=== PATIENT | male | born 1960 | race Caucasian/White ===

== ENCOUNTER 2016-06-22 20:27 | Inpatient (IN) | payer OTHER, SELFPAY ==
[~2016-06-22] VITALS: Ht 190.5 cm; Wt 50.6 kg
[2016-06-22] MEDS ORDERED: SODIUM CHLORIDE FLUSH 10ML SYR IVF ONE (21:00)
[2016-06-22] MEDS ORDERED: PIOG15TA9 PO (21:13)
[2016-06-22] MEDS ORDERED: LINA5TAB PO (21:13)
[2016-06-22] MEDS ORDERED: INSU100V12 INJ (21:13)
[2016-06-22] MEDS ORDERED: NAPR-874 PO (21:14)
[2016-06-22 21:29] LABS: HEMOGLOBIN 14.8 g/dL (13.7-18.0)
[2016-06-22] MEDS ORDERED: VANCOMYCIN PER PHARMACY IV ONE (21:30)
[2016-06-22] MEDS ORDERED: SODIUM CHLORIDE 0.9% 1,000ML IVBOLUS ONE (21:30)
[2016-06-22 21:38] LABS: ASPARTATE AMINO TRANSFERASE 16 U/L (15-37); BLOOD UREA NITROGEN 40 mg/dL (7-18)
[2016-06-22] MEDS ORDERED: VANCOMYCIN 2,000 MG in SODIUM CHLORIDE 0.9% 500 ML IV ONE (22:00)
[2016-06-22] MEDS ORDERED: AMPICILLIN/SULBACTAM 1,500 MG in SODIUM CHLORIDE 0.9% 50 ML IV SCH (22:00)
[2016-06-22 23:27] VITALS: BP 162/76
[2016-06-23] MEDS ORDERED: ACETAMINOPHEN 325 MG TABLET PO PRN
[2016-06-23] MEDS ORDERED: DOCUSATE 100 MG CAPSULE PO PRN
[2016-06-23] MEDS ORDERED: ONDANSETRON 2MG/ML, 2ML IVP PRN
[2016-06-23] MEDS ORDERED: POLYETHYLENE GLYCOL 17 GM PACKET PO PRN
[2016-06-23] MEDS ORDERED: BISACODYL 10 MG SUPP PR PRN
[2016-06-23] MEDS ORDERED: ZOLPIDEM 5MG TABLET PO PRN
[2016-06-23] MEDS ORDERED: HYDROcodone/APAP 5/325 TABLET PO PRN
[2016-06-23] MEDS: HEPARIN 5,000 UNITS/ML, 1ML SQ SCH ×3 (00:37→20:11)
[2016-06-23] MEDS: CEFTAROLINE 400 MG in SODIUM CHLORIDE 0.9% 100 ML IV SCH ×3 (00:38→23:50)
[2016-06-23 03:22] VITALS: BP 151/78
[2016-06-23 04:38] LABS: BLOOD UREA NITROGEN 34 mg/dL (7-18)
[2016-06-23 06:59] VITALS: BP 149/74
[2016-06-23] MEDS: INSULIN REGULAR 100 UNITS/ML, 3ML VIAL SQ-INSULIN SCH ×4 (08:20→21:00)
[2016-06-23] MEDS: INSULIN ASPART 70/30, VIAL SQ-INSULIN SCH ×3 (09:00→21:00)
[2016-06-23] MEDS: TEMPLATE NON-FORMULARY MED. (Linagliptin** (Tradjenta**) 5 MG) HOMEMEDPO SCH (09:00)
[2016-06-23] MEDS: SODIUM CHLORIDE 0.9% 1,000 ML IV SCH ×2 (10:58→23:49)
[2016-06-23] MEDS: PIOGLITAZONE 15 MG TABLET PO SCH (11:33)
[2016-06-23 13:56] VITALS: BP 135/74
[2016-06-23 20:15] VITALS: BP 145/74
[2016-06-24 03:25] VITALS: BP 164/82
[2016-06-24] MEDS: HEPARIN 5,000 UNITS/ML, 1ML SQ SCH (03:53)
[2016-06-24] MEDS ORDERED: CEFD300C2 PO (07:21)
[2016-06-24] MEDS ORDERED: CLIN300C93 PO (07:21)
[2016-06-24] MEDS: PIOGLITAZONE 15 MG TABLET PO SCH (08:00)
[2016-06-24] MEDS: INSULIN REGULAR 100 UNITS/ML, 3ML VIAL SQ-INSULIN SCH (08:00)
[2016-06-24] MEDS: INSULIN ASPART 70/30, VIAL SQ-INSULIN SCH (08:01)
[2016-06-24] MEDS: TEMPLATE NON-FORMULARY MED. (Linagliptin** (Tradjenta**) 5 MG) HOMEMEDPO SCH (08:01)
[2016-06-24 08:04] VITALS: BP 154/76
[2016-06-24] MEDS: CEFTAROLINE 400 MG in SODIUM CHLORIDE 0.9% 100 ML IV SCH (09:08)
== END 2016-06-24 10:30 | disposition home or self-care (01) | DRG 602 ==
LOC: ED 23:00 → 3NW 23:17 → 4NOR 06-23 13:45
DX: L03.031 Cellulitis of right toe (principal); N17.0 Acute kidney failure with tubular necrosis; E87.1 Hypo-osmolality and hyponatremia; Z68.1 Body mass index [BMI] 19.9 or less, adult; N18.4 Chronic kidney disease, stage 4 (severe); E11.65 Type 2 diabetes mellitus with hyperglycemia; E11.42 Type 2 diabetes mellitus with diabetic polyneuropathy; E11.22 Type 2 diabetes mellitus with diabetic chronic kidney disease; E11.621 Type 2 diabetes mellitus with foot ulcer; E66.9 Obesity, unspecified; Z79.4 Long term (current) use of insulin; Z87.891 Personal history of nicotine dependence; E11.21 Type 2 diabetes mellitus with diabetic nephropathy
CPT/HCPCS: 36415; 80048; 80053; 82962; 83036; 83605; 85025; 85651; 86141; 87040; 93922; 96365; J0712; J1644; J1815; J3370; J0295; J7030; J7040

== ENCOUNTER 2016-09-09 10:44 | Inpatient (IN) | payer OTHER ==
[~2016-09-09] VITALS: Ht 190.5 cm; Wt 112.0 kg
[~2016-09-09 10:44] MED LIST: CEFD300C37 PO; CLIN300C93 PO; INSU100V12 INJ; LINA5TAB PO; NAPR-874 PO; PIOG15TA9 PO
[2016-09-09] MEDS ORDERED: SODIUM CHLORIDE 0.9% 1,000 ML IV ONE (11:20)
[2016-09-09] MEDS ORDERED: PIPERACILLIN/TAZO/PMX 3.375GM 50 ML IV ONE (11:30)
[2016-09-09] MEDS ORDERED: SODIUM CHLORIDE FLUSH 10ML SYR IVF ONE (11:30)
[2016-09-09] MEDS ORDERED: PIPERACILLIN/TAZO/PMX 3.375GM 50 ML ONE (11:37)
[2016-09-09] MEDS ORDERED: ASPI-496 PO (11:47)
[2016-09-09] MEDS ORDERED: NAPR500T PO (11:47)
[2016-09-09 12:13] LABS: BLOOD UREA NITROGEN 36 mg/dL (7-18)
[2016-09-09] MEDS ORDERED: BISACODYL 10 MG SUPP PR PRN (13:00)
[2016-09-09] MEDS ORDERED: HYDROcodone/APAP 5/325 TABLET PO PRN (13:00)
[2016-09-09] MEDS ORDERED: DOCUSATE 100 MG CAPSULE PO PRN (13:00)
[2016-09-09] MEDS ORDERED: POLYETHYLENE GLYCOL 17 GM PACKET PO PRN (13:00)
[2016-09-09] MEDS ORDERED: ONDANSETRON 2MG/ML, 2ML IVPush PRN (13:00)
[2016-09-09] MEDS: HEPARIN 5,000 UNITS/ML, 1ML SQ SCH ×2 (13:00→21:00)
[2016-09-09] MEDS ORDERED: morphine SULFATE 10 MG/ML, 1ML IVPush PRN (13:00)
[2016-09-09] MEDS ORDERED: LABETALOL 5MG/ML 40ML VIAL IVPush PRN (13:00)
[2016-09-09] MEDS ORDERED: ACETAMINOPHEN 325 MG TABLET PO PRN (13:00)
[2016-09-09] MEDS: SODIUM CHLORIDE 0.9% 1,000 ML IV SCH (18:00)
[2016-09-09] MEDS ORDERED: DEXTROSE 4 GM TAB.CHEW PO PRN (18:30)
[2016-09-09] MEDS ORDERED: GLUCAGON 1 MG IM PRN (18:30)
[2016-09-09] MEDS ORDERED: DEXTROSE 50%, 50ML SYRINGE IVPush PRN (18:30)
[2016-09-09 18:47] VITALS: BP 165/76
[2016-09-09] MEDS: INSULIN ASPART 100 UNITS/ML, PEN SQ-INSULIN SCH (19:40)
[2016-09-09] MEDS: SODIUM CHLORIDE FLUSH 10ML SYR IVF SCH (19:41)
[2016-09-09 20:15] LABS: POTASSIUM,URINE RANDOM 10 mmol/L
[2016-09-10] MEDS: INSULIN ASPART 100 UNITS/ML, PEN SQ-INSULIN SCH ×6 (00:13→21:00)
[2016-09-10 01:59] VITALS: BP 128/70
[2016-09-10] MEDS: HEPARIN 5,000 UNITS/ML, 1ML SQ SCH (04:36)
[2016-09-10 05:27] LABS: BLOOD UREA NITROGEN 26 mg/dL (7-18)
[2016-09-10 06:41] VITALS: BP 130/67
[2016-09-10] MEDS: SODIUM CHLORIDE FLUSH 10ML SYR IVF SCH ×2 (10:01→21:00)
[2016-09-10] MEDS: SODIUM CHLORIDE 0.9% 1,000 ML IV SCH (10:01)
[2016-09-10 12:11] VITALS: BP 157/75
[2016-09-10] MEDS ORDERED: FENTANYL PF 100 MCG/2ML ONE ×2 (13:20→14:50)
[2016-09-10] MEDS ORDERED: MIDAZOLAM 1 MG/ML, 2ML ONE (13:20)
[2016-09-10] MEDS ORDERED: ONDANSETRON 2MG/ML, 2ML ONE (13:45)
[2016-09-10] MEDS ORDERED: PROPOFOL 10 MG/ML, 20ML ONE (13:45)
[2016-09-10] MEDS ORDERED: CEFAZOLIN 1,000 MG ONE (13:45)
[2016-09-10] MEDS ORDERED: PROMETHAZINE 25 MG/ML, 1ML IV PRN (14:30)
[2016-09-10] MEDS ORDERED: HYDROmorphone 1 MG/ML, 1ML IV PRN (14:30)
[2016-09-10] MEDS ORDERED: ACETAMINOPHEN 325 MG TABLET PO PRN (14:30)
[2016-09-10] MEDS ORDERED: OXYcodone 5 MG/5 ML ORAL.SOL UDC ONE (14:50)
[2016-09-10] MEDS: FENTANYL PF 100 MCG/2ML IV PRN ×2 (14:54→15:00)
[2016-09-10] MEDS: OXYcodone 5 MG/5 ML ORAL.SOL UDC PO PRN ×2 (14:54→14:59)
[2016-09-10] MEDS ORDERED: DEXTROSE 4 GM TAB.CHEW PO PRN ×2 (18:00→20:30)
[2016-09-10] MEDS ORDERED: DEXTROSE 50%, 50ML SYRINGE IVPush PRN ×2 (18:00→20:30)
[2016-09-10] MEDS ORDERED: BISACODYL 10 MG SUPP PR PRN ×2 (18:00→20:30)
[2016-09-10 19:55] VITALS: BP 125/66
[2016-09-10] MEDS ORDERED: POLYETHYLENE GLYCOL 17 GM PACKET PO PRN (20:30)
[2016-09-10] MEDS ORDERED: LABETALOL 5MG/ML 40ML VIAL IVPush PRN (20:30)
[2016-09-10] MEDS ORDERED: GLUCAGON 1 MG IM PRN (20:30)
[2016-09-10] MEDS ORDERED: DOCUSATE 100 MG CAPSULE PO PRN (20:30)
[2016-09-10] MEDS: ACETAMINOPHEN 325 MG TABLET PO PRN (21:18)
[2016-09-10] MEDS: CETIRIZINE 10 MG TABLET PO SCH (21:18)
[2016-09-10 23:32] VITALS: BP 122/65
[2016-09-11 03:23] VITALS: BP 121/51
[2016-09-11] MEDS: ACETAMINOPHEN 325 MG TABLET PO PRN (04:16)
[2016-09-11] MEDS: INSULIN ASPART 100 UNITS/ML, PEN SQ-INSULIN SCH ×4 (07:00→20:19)
[2016-09-11] MEDS ORDERED: PHARMACOKINETIC CONSULTATION MC ONE (07:30)
[2016-09-11] MEDS ORDERED: VANCOMYCIN 2,000 MG in SODIUM CHLORIDE 0.9% 500 ML IV SCH (07:30)
[2016-09-11] MEDS ORDERED: VANCOMYCIN PER PHARMACY MC PRN (07:30)
[2016-09-11] MEDS ORDERED: PIPERACILLIN/TAZO 3.375 GM in SODIUM CHLORIDE 0.9% 50 ML IV SCH (07:30)
[2016-09-11] MEDS ORDERED: PHARMACOKINETIC MONITORING MC PRN (07:30)
[2016-09-11 07:42] LABS: BLOOD UREA NITROGEN 24 mg/dL (7-18)
[2016-09-11 08:18] VITALS: BP 154/73
[2016-09-11] MEDS ORDERED: PIPERACILLIN/TAZO 3.375 GM in SODIUM CHLORIDE 0.9% 100 ML IV SCH (09:30)
[2016-09-11] MEDS: SODIUM CHLORIDE FLUSH 10ML SYR IVF SCH ×2 (11:56→20:07)
[2016-09-11 13:57] VITALS: BP 137/73
[2016-09-11] MEDS: ENOXAPARIN 40 MG/0.4 ML SQ SCH (16:55)
[2016-09-11 19:55] VITALS: BP 139/65
[2016-09-11] MEDS: CETIRIZINE 10 MG TABLET PO SCH (20:06)
[2016-09-12 00:46] VITALS: BP 117/58
[2016-09-12 06:19] LABS: ASPARTATE AMINO TRANSFERASE 10 U/L (15-37); BLOOD UREA NITROGEN 21 mg/dL (7-18)
[2016-09-12] MEDS: INSULIN ASPART 100 UNITS/ML, PEN SQ-INSULIN SCH ×4 (07:00→21:37)
[2016-09-12 07:42] VITALS: BP 141/71
[2016-09-12] MEDS: CETIRIZINE 10 MG TABLET PO SCH (08:28)
[2016-09-12] MEDS: DAPTOMYCIN 700 MG in SODIUM CHLORIDE 0.9% 100 ML IV SCH (09:30)
[2016-09-12] MEDS: SODIUM CHLORIDE FLUSH 10ML SYR IVF SCH ×2 (09:30→21:37)
[2016-09-12] MEDS ORDERED: NALOXONE 1 MG/ML, 2ML ONE (10:22)
[2016-09-12] MEDS ORDERED: MIDAZOLAM 1 MG/ML, 5ML ONE (10:22)
[2016-09-12] MEDS ORDERED: FENTANYL PF 100 MCG/2ML ONE (10:22)
[2016-09-12] MEDS ORDERED: FLUMAZENIL 0.1 MG/1 ML, 5ML ONE (10:23)
[2016-09-12] MEDS ORDERED: LIDOCAINE 1%, 20ML ONE (10:47)
[2016-09-12 12:47] VITALS: BP 149/81
[2016-09-12] MEDS: ENOXAPARIN 40 MG/0.4 ML SQ SCH (17:10)
[2016-09-12 19:56] VITALS: BP 127/69
[2016-09-13 02:09] VITALS: BP 132/71
[2016-09-13] MEDS: INSULIN ASPART 100 UNITS/ML, PEN SQ-INSULIN SCH ×4 (07:00→22:05)
[2016-09-13 07:10] VITALS: BP 126/69
[2016-09-13] MEDS: CETIRIZINE 10 MG TABLET PO SCH (10:00)
[2016-09-13] MEDS: SODIUM CHLORIDE FLUSH 10ML SYR IVF SCH ×2 (10:00→22:05)
[2016-09-13] MEDS: DAPTOMYCIN 700 MG in SODIUM CHLORIDE 0.9% 100 ML IV SCH (10:39)
[2016-09-13 14:49] VITALS: BP 145/70
[2016-09-13] MEDS ORDERED: DAPT500V6 IV (15:29)
[2016-09-13] MEDS: ENOXAPARIN 40 MG/0.4 ML SQ SCH (16:33)
[2016-09-13 21:39] VITALS: BP 128/78
[2016-09-14 01:41] VITALS: BP 135/71
[2016-09-14] MEDS: CETIRIZINE 10 MG TABLET PO SCH (09:07)
[2016-09-14] MEDS: INSULIN ASPART 100 UNITS/ML, PEN SQ-INSULIN SCH ×4 (09:07→21:41)
[2016-09-14] MEDS: SODIUM CHLORIDE FLUSH 10ML SYR IVF SCH ×2 (09:08→21:41)
[2016-09-14] MEDS: DAPTOMYCIN 700 MG in SODIUM CHLORIDE 0.9% 100 ML IV SCH (09:33)
[2016-09-14 11:30] VITALS: BP 115/67
[2016-09-14] MEDS: metroNIDAZOLE 500 MG TABLET PO SCH ×2 (14:44→21:40)
[2016-09-14 16:23] VITALS: BP 103/65
[2016-09-14] MEDS: ENOXAPARIN 40 MG/0.4 ML SQ SCH (16:58)
[2016-09-14 20:10] VITALS: BP 116/74
[2016-09-15 02:09] VITALS: BP 125/71
[2016-09-15] MEDS: metroNIDAZOLE 500 MG TABLET PO SCH ×2 (06:38→14:38)
[2016-09-15] MEDS: CETIRIZINE 10 MG TABLET PO SCH (08:10)
[2016-09-15] MEDS: INSULIN ASPART 100 UNITS/ML, PEN SQ-INSULIN SCH ×3 (08:11→16:35)
[2016-09-15 08:21] VITALS: BP 133/80
[2016-09-15] MEDS: SODIUM CHLORIDE FLUSH 10ML SYR IVF SCH (09:30)
[2016-09-15] MEDS: DAPTOMYCIN 700 MG in SODIUM CHLORIDE 0.9% 100 ML IV SCH (09:30)
[2016-09-15 15:45] VITALS: BP 130/66
[2016-09-15] MEDS ORDERED: METR500T PO (16:06)
[2016-09-15] MEDS ORDERED: INSULIN ASPART 70/30, VIAL SQ-INSULIN SCH (21:00)
[2016-09-15] MEDS ORDERED: INSULIN HUMULIN 70/30, 3ML PEN SQ-INSULIN SCH (21:00)
[2016-09-15] MEDS ORDERED: INSULIN ASPART 70/30 100U/ML, PEN SQ-INSULIN SCH (21:00)
== END 2016-09-15 17:05 | disposition home or self-care (01) | DRG 617 ==
LOC: ED 11:48 → EDIP 11:49 → ED 12:10 → 3NE 12:39 → 4NOR 09-10 14:42 → UNDODISIN 09-10 14:45
PROC: 0Y6P0Z1 Detachment at Right 1st Toe, High, Open Approach (ICD-10-PCS; principal; 2016-09-09)
PROC: 0JH60XZ Insertion of Tunneled Vascular Access Device into Chest Subcutaneous Tissue and Fascia, Open Approach (ICD-10-PCS; 2016-09-12)
PROC: 02H633Z Insertion of Infusion Device into Right Atrium, Percutaneous Approach (ICD-10-PCS; 2016-09-12)
PROC: B244ZZZ Ultrasonography of Right Heart (ICD-10-PCS; 2016-09-12)
DX: E11.69 Type 2 diabetes mellitus with other specified complication (principal); E44.0 Moderate protein-calorie malnutrition; M86.171 Other acute osteomyelitis, right ankle and foot; E11.621 Type 2 diabetes mellitus with foot ulcer; E11.42 Type 2 diabetes mellitus with diabetic polyneuropathy; L97.519 Non-pressure chronic ulcer of other part of right foot with unspecified severity; E11.21 Type 2 diabetes mellitus with diabetic nephropathy; E11.65 Type 2 diabetes mellitus with hyperglycemia; L03.031 Cellulitis of right toe; Z66 Do not resuscitate; G60.8 Other hereditary and idiopathic neuropathies; N18.9 Chronic kidney disease, unspecified; E11.22 Type 2 diabetes mellitus with diabetic chronic kidney disease; Z82.49 Family history of ischemic heart disease and other diseases of the circulatory system; Z79.4 Long term (current) use of insulin; Z83.3 Family history of diabetes mellitus; Z87.891 Personal history of nicotine dependence; Z68.30 Body mass index [BMI] 30.0-30.9, adult
CPT/HCPCS: 36415; 36558; 76770; 76937; 77001; 80048; 80053; 81003; 82040; 82436; 82550; 82570; 82962; 83036; 84133; 84300; 85025; 85651; 86140; 87070; 87075; 87077; 87176; 87186; 87205; 88305; 88311; 96365; J0690; J0878; J1650; J1815; J2250; J2405; J2543; J2704; J3010; J3370; J3490; C1751; J2310; J7030; J7040

== ENCOUNTER 2016-10-27 09:10 | Day surgery (SDC) | payer OTHER ==
[~2016-10-27] VITALS: Ht 190.5 cm; Wt 111.0 kg
[~2016-10-27 09:10] MED LIST changes: +ASPI-496 PO; +DAPT500V6 IV; +METR500T PO; +NAPR500T PO
[2016-10-27 10:13] VITALS: BP 115/72
[2016-10-27] MEDS ORDERED: MIDAZOLAM 1 MG/ML, 5ML ONE ×2 (10:33→10:35)
[2016-10-27] MEDS ORDERED: FENTANYL PF 100 MCG/2ML ONE (10:34)
[2016-10-27] MEDS ORDERED: LIDOCAINE 1%, 20ML ONE (10:36)
== END 2016-10-27 11:25 ==
LOC: OUT 09:10
PROVIDERS: ATTEND Internal Medicine Infectious Disease
DX: Z45.2 Encounter for adjustment and management of vascular access device (principal); E11.9 Type 2 diabetes mellitus without complications; Z86.14 Personal history of Methicillin resistant Staphylococcus aureus infection; Z87.891 Personal history of nicotine dependence
CPT/HCPCS: 36589; 77001; J2250; J3490; J3010

== ENCOUNTER 2017-05-25 10:10 | Day surgery (SDC) | payer OTHER ==
[~2017-05-25] VITALS: Ht 190.5 cm; Wt 110.9 kg
[~2017-05-25 10:10] MED LIST changes: +CLIN300C8 PO; -CLIN300C93 PO; +NAPR-856 PO; -NAPR-874 PO; +NAPR250T6 PO; -NAPR500T PO; +PIOG15TA22 PO; -PIOG15TA9 PO
[2017-05-25] MEDS ORDERED: LIDOCAINE-MPF 1%, 2ML ONE (10:43)
[2017-05-25 11:17] VITALS: BP 117/72
[2017-05-25] MEDS ORDERED: ACET325T14 PO (11:31)
[2017-05-25] MEDS ORDERED: SULF1TAB24 PO (11:31)
[2017-05-25] MEDS ORDERED: PENI500T PO (11:31)
[2017-05-25] MEDS ORDERED: LACTATED RINGERS 1,000 ML IV SCH (11:35)
[2017-05-25] MEDS ORDERED: PROPOFOL 10 MG/ML, 20ML ONE ×2 (11:48)
[2017-05-25] MEDS ORDERED: LIDOCAINE GEL 2%, 5ML ONE (11:48)
[2017-05-25] MEDS ORDERED: LIDOCAINE-MPF 2% ,5ML ONE (11:48)
[2017-05-25] MEDS ORDERED: LIDOCAINE 1%, 2ML SQ PRN (12:00)
[2017-05-25] MEDS ORDERED: CEFAZOLIN 1,000 MG ONE ×2 (12:07)
[2017-05-25] MEDS ORDERED: VANCOMYCIN 1,000 MG ONE (12:08)
[2017-05-25 12:13] LABS: ANION GAP 8 mmol/L (5-15); CALCIUM 8.8 mg/dL (8.5-10.1); CHLORIDE 105 mmol/L (98-107); CREATININE 2.23 mg/dL (0.7-1.3)
[2017-05-25] MEDS ORDERED: PHENYLEPHRINE 10 MG/ML ONE (12:15)
[2017-05-25 12:22] LABS: HEMOGLOBIN A1C 9.6 % (4.2-6.3)
[2017-05-25] MEDS ORDERED: ACETAMINOPHEN 650 MG/20.3 ML UDC ONE (12:53)
[2017-05-25] MEDS ORDERED: KETOROLAC 30 MG/1 ML ONE (12:53)
[2017-05-25] MEDS ORDERED: ACETAMINOPHEN 325 MG TABLET PO ONE (13:00)
[2017-05-25] MEDS ORDERED: FENTANYL PF 100 MCG/2ML IV PRN (13:00)
[2017-05-25] MEDS ORDERED: ONDANSETRON 2MG/ML, 2ML IVPush PRN (13:00)
[2017-05-25] MEDS ORDERED: HYDROcodone/APAP 7.5-325MG/15ML UDC PO PRN (13:00)
[2017-05-25] MEDS ORDERED: OXYcodone 5 MG/5 ML ORAL.SOL UDC PO PRN (13:00)
[2017-05-25] MEDS ORDERED: KETOROLAC 30 MG/1 ML IVPush ONE (13:00)
== END 2017-05-25 14:16 ==
LOC: OUT 10:10
PROVIDERS: ATTEND Orthopaedic Surgery Foot and Ankle Surgery
DX: E11.69 Type 2 diabetes mellitus with other specified complication (principal); M86.8X7 Other osteomyelitis, ankle and foot; L60.2 Onychogryphosis; K21.9 Gastro-esophageal reflux disease without esophagitis
CPT/HCPCS: 17999; 28820; 36415; 80048; 82962; 83036; 87070; 87075; 87077; 87176; 87186; 87205; 88305; J0690; J1885; J2370; J2704; J3370; J3490; 88311

== ENCOUNTER → 2017-08-20 | Outpatient (CLI) | payer OTHER ==
[~2017-08-20] MED LIST changes: +ACET325T14 PO; +PENI500T PO; +SULF1TAB24 PO
== END | disposition home or self-care (01) ==
LOC: WOUND 14:17
PROVIDERS: ATTEND Internal Medicine
DX: E11.621 Type 2 diabetes mellitus with foot ulcer (principal); L97.521 Non-pressure chronic ulcer of other part of left foot limited to breakdown of skin; E11.69 Type 2 diabetes mellitus with other specified complication; M86.8X7 Other osteomyelitis, ankle and foot; E78.00 Pure hypercholesterolemia, unspecified; Z87.891 Personal history of nicotine dependence; Z89.411 Acquired absence of right great toe
CPT/HCPCS: 97597; 99215

== ENCOUNTER → 2017-08-24 | Outpatient (CLI) | payer OTHER | END | disposition home or self-care (01) | LOC: RAD 12:34 | PROVIDERS: ATTEND Internal Medicine Infectious Disease | DX: Z45.2 Encounter for adjustment and management of vascular access device (principal); Z79.2 Long term (current) use of antibiotics | CPT/HCPCS: 36558; 76937; 77001; C1751 ==

== ENCOUNTER → 2017-08-31 | Outpatient (CLI) | payer OTHER | END | disposition home or self-care (01) | LOC: WOUND 08:05 | PROVIDERS: ATTEND Family Medicine | DX: E11.621 Type 2 diabetes mellitus with foot ulcer (principal); L97.521 Non-pressure chronic ulcer of other part of left foot limited to breakdown of skin; E11.69 Type 2 diabetes mellitus with other specified complication; M86.271 Subacute osteomyelitis, right ankle and foot; E78.00 Pure hypercholesterolemia, unspecified; Z87.891 Personal history of nicotine dependence; Z89.411 Acquired absence of right great toe | CPT/HCPCS: 97597 ==

== ENCOUNTER → 2017-09-07 | Outpatient (CLI) | payer OTHER | END | disposition home or self-care (01) | LOC: WOUND 08:15 | PROVIDERS: ATTEND Family Medicine | DX: E11.621 Type 2 diabetes mellitus with foot ulcer (principal); L97.521 Non-pressure chronic ulcer of other part of left foot limited to breakdown of skin; E11.69 Type 2 diabetes mellitus with other specified complication; M86.271 Subacute osteomyelitis, right ankle and foot; E78.00 Pure hypercholesterolemia, unspecified; Z89.411 Acquired absence of right great toe; Z87.891 Personal history of nicotine dependence | CPT/HCPCS: 97597 ==

== ENCOUNTER → 2017-10-08 | Outpatient (CLI) | payer OTHER | END | disposition home or self-care (01) | LOC: WOUND 07:45 | PROVIDERS: ATTEND Internal Medicine | DX: E11.621 Type 2 diabetes mellitus with foot ulcer (principal); L97.521 Non-pressure chronic ulcer of other part of left foot limited to breakdown of skin; E11.69 Type 2 diabetes mellitus with other specified complication; M86.271 Subacute osteomyelitis, right ankle and foot; E78.00 Pure hypercholesterolemia, unspecified; Z89.411 Acquired absence of right great toe; Z87.891 Personal history of nicotine dependence | CPT/HCPCS: 97597 ==

== ENCOUNTER 2017-10-12 10:23 | Day surgery (SDC) | payer OTHER ==
[~2017-10-12 10:23] MED LIST changes: +LIDOCAINE-MPF 2% ,5ML ONE
[2017-10-12] MEDS ORDERED: LIDOCAINE-MPF 1%, 2ML ONE (10:52)
== END 2017-10-12 17:00 ==
LOC: RAD 10:23
PROVIDERS: ATTEND Internal Medicine Infectious Disease
DX: Z45.2 Encounter for adjustment and management of vascular access device (principal)
CPT/HCPCS: 36589; 77001; C1769; J3490

== ENCOUNTER → 2017-10-15 | Outpatient (CLI) | payer OTHER ==
[~2017-10-15] MED LIST changes: -LIDOCAINE-MPF 2% ,5ML ONE
== END | disposition home or self-care (01) ==
LOC: WOUND 07:53
PROVIDERS: ATTEND Internal Medicine
DX: E11.621 Type 2 diabetes mellitus with foot ulcer (principal); L97.521 Non-pressure chronic ulcer of other part of left foot limited to breakdown of skin; E11.69 Type 2 diabetes mellitus with other specified complication; M86.271 Subacute osteomyelitis, right ankle and foot; E78.00 Pure hypercholesterolemia, unspecified; Z89.411 Acquired absence of right great toe; Z87.891 Personal history of nicotine dependence
CPT/HCPCS: 97597

== ENCOUNTER → 2017-10-17 | Outpatient (CLI) | payer OTHER | END | disposition home or self-care (01) | LOC: WOUND 08:17 | PROVIDERS: ATTEND Internal Medicine | DX: E11.621 Type 2 diabetes mellitus with foot ulcer (principal); L97.521 Non-pressure chronic ulcer of other part of left foot limited to breakdown of skin; E11.69 Type 2 diabetes mellitus with other specified complication; M86.271 Subacute osteomyelitis, right ankle and foot; E78.00 Pure hypercholesterolemia, unspecified; Z89.411 Acquired absence of right great toe; Z87.891 Personal history of nicotine dependence | CPT/HCPCS: 29445 ==

== ENCOUNTER → 2017-10-22 | Outpatient (CLI) | payer OTHER | END | disposition home or self-care (01) | LOC: WOUND 07:46 | PROVIDERS: ATTEND Internal Medicine | DX: E11.621 Type 2 diabetes mellitus with foot ulcer (principal); L97.521 Non-pressure chronic ulcer of other part of left foot limited to breakdown of skin; E11.69 Type 2 diabetes mellitus with other specified complication; M86.271 Subacute osteomyelitis, right ankle and foot; E78.00 Pure hypercholesterolemia, unspecified; Z89.411 Acquired absence of right great toe; Z87.891 Personal history of nicotine dependence | CPT/HCPCS: 97597 ==

== ENCOUNTER → 2017-10-29 | Outpatient (CLI) | payer OTHER | END | disposition home or self-care (01) | LOC: CFH 08:03 | PROVIDERS: ATTEND Internal Medicine | DX: M86.271 Subacute osteomyelitis, right ankle and foot (principal); E11.621 Type 2 diabetes mellitus with foot ulcer ==

== ENCOUNTER → 2017-11-01 | Outpatient (CLI) | payer OTHER | END | disposition home or self-care (01) | LOC: WOUND 08:30 | PROVIDERS: ATTEND Podiatrist Foot & Ankle Surgery | DX: E11.621 Type 2 diabetes mellitus with foot ulcer (principal); L97.524 Non-pressure chronic ulcer of other part of left foot with necrosis of bone; E11.69 Type 2 diabetes mellitus with other specified complication; M86.271 Subacute osteomyelitis, right ankle and foot; E78.00 Pure hypercholesterolemia, unspecified; Z89.411 Acquired absence of right great toe; Z87.891 Personal history of nicotine dependence | CPT/HCPCS: 11042; 87070; 87077; 87186; 87205; 97597 ==

== ENCOUNTER → 2017-11-08 | Outpatient (CLI) | payer OTHER | END | disposition home or self-care (01) | LOC: WOUND 08:00 | PROVIDERS: ATTEND Podiatrist Foot & Ankle Surgery | DX: E11.621 Type 2 diabetes mellitus with foot ulcer (principal); L97.524 Non-pressure chronic ulcer of other part of left foot with necrosis of bone; E11.69 Type 2 diabetes mellitus with other specified complication; M86.271 Subacute osteomyelitis, right ankle and foot; E78.00 Pure hypercholesterolemia, unspecified; Z89.411 Acquired absence of right great toe; Z87.891 Personal history of nicotine dependence | CPT/HCPCS: 11042 ==

== ENCOUNTER → 2017-11-15 | Outpatient (CLI) | payer OTHER | END | disposition home or self-care (01) | LOC: WOUND 08:44 | PROVIDERS: ATTEND Podiatrist Foot & Ankle Surgery | DX: E11.621 Type 2 diabetes mellitus with foot ulcer (principal); L97.521 Non-pressure chronic ulcer of other part of left foot limited to breakdown of skin; E11.69 Type 2 diabetes mellitus with other specified complication; M86.271 Subacute osteomyelitis, right ankle and foot; E11.42 Type 2 diabetes mellitus with diabetic polyneuropathy; L84 Corns and callosities; E78.00 Pure hypercholesterolemia, unspecified; Z89.411 Acquired absence of right great toe; Z87.891 Personal history of nicotine dependence | CPT/HCPCS: 97597 ==

== ENCOUNTER → 2017-11-22 | Outpatient (CLI) | payer OTHER | END | disposition home or self-care (01) | LOC: WOUND 08:53 | PROVIDERS: ATTEND Podiatrist Foot & Ankle Surgery | DX: E11.621 Type 2 diabetes mellitus with foot ulcer (principal); L97.521 Non-pressure chronic ulcer of other part of left foot limited to breakdown of skin; E11.69 Type 2 diabetes mellitus with other specified complication; M86.271 Subacute osteomyelitis, right ankle and foot; E11.42 Type 2 diabetes mellitus with diabetic polyneuropathy; L84 Corns and callosities; E78.00 Pure hypercholesterolemia, unspecified; Z89.411 Acquired absence of right great toe; Z87.891 Personal history of nicotine dependence | CPT/HCPCS: 97597 ==

== ENCOUNTER → 2017-11-29 | Outpatient (CLI) | payer OTHER | END | disposition home or self-care (01) | LOC: WOUND 09:15 | PROVIDERS: ATTEND Podiatrist Foot & Ankle Surgery | DX: E11.621 Type 2 diabetes mellitus with foot ulcer (principal); L97.521 Non-pressure chronic ulcer of other part of left foot limited to breakdown of skin; E11.42 Type 2 diabetes mellitus with diabetic polyneuropathy; L84 Corns and callosities; M86.271 Subacute osteomyelitis, right ankle and foot; E78.00 Pure hypercholesterolemia, unspecified; Z89.411 Acquired absence of right great toe; Z87.891 Personal history of nicotine dependence | CPT/HCPCS: 97597 ==

== ENCOUNTER → 2017-12-13 | Outpatient (CLI) | payer OTHER | END | disposition home or self-care (01) | LOC: WOUND 07:59 | PROVIDERS: ATTEND Podiatrist Foot & Ankle Surgery | DX: E11.621 Type 2 diabetes mellitus with foot ulcer (principal); L97.521 Non-pressure chronic ulcer of other part of left foot limited to breakdown of skin; E11.69 Type 2 diabetes mellitus with other specified complication; E11.42 Type 2 diabetes mellitus with diabetic polyneuropathy; M86.271 Subacute osteomyelitis, right ankle and foot; L84 Corns and callosities; E78.00 Pure hypercholesterolemia, unspecified; Z87.891 Personal history of nicotine dependence | CPT/HCPCS: 97597 ==

== ENCOUNTER → 2017-12-27 | Outpatient (CLI) | payer OTHER | END | disposition home or self-care (01) | LOC: WOUND 07:39 | PROVIDERS: ATTEND Podiatrist Foot & Ankle Surgery | DX: E11.621 Type 2 diabetes mellitus with foot ulcer (principal); L97.521 Non-pressure chronic ulcer of other part of left foot limited to breakdown of skin; E11.69 Type 2 diabetes mellitus with other specified complication; M86.271 Subacute osteomyelitis, right ankle and foot; E11.42 Type 2 diabetes mellitus with diabetic polyneuropathy; L84 Corns and callosities; E78.00 Pure hypercholesterolemia, unspecified; Z87.891 Personal history of nicotine dependence; Z89.411 Acquired absence of right great toe | CPT/HCPCS: 97597; 99214 ==

== ENCOUNTER → 2018-01-25 | Outpatient (CLI) | payer OTHER | END | disposition home or self-care (01) | LOC: WOUND 08:15 | PROVIDERS: ATTEND Family Medicine | DX: E11.621 Type 2 diabetes mellitus with foot ulcer (principal); L97.524 Non-pressure chronic ulcer of other part of left foot with necrosis of bone; E11.69 Type 2 diabetes mellitus with other specified complication; M86.271 Subacute osteomyelitis, right ankle and foot; E11.42 Type 2 diabetes mellitus with diabetic polyneuropathy; L84 Corns and callosities; E78.00 Pure hypercholesterolemia, unspecified; Z87.891 Personal history of nicotine dependence | CPT/HCPCS: 97597 ==

== ENCOUNTER 2018-02-18 21:26 | Emergency (ER) | payer OTHER ==
[~2018-02-18] VITALS: Ht 190.5 cm; Wt 112.4 kg
[2018-02-18 22:24] LABS: BASOPHILS # (AUTO) 0.02 x10^3/uL (0-0.1); BASOPHILS % (AUTO) 0 % (0-1); EOSINOPHILS # (AUTO) 0.16 x10^3/uL (0-0.4); EOSINOPHILS % (AUTO) 2 % (1-7); LYMPHOCYTES # (AUTO) 1.84 x10^3/uL (1-3.4); LYMPHOCYTES % (AUTO) 21 % (22-44); MD NO; MEAN CORPUSCULAR HEMOGLOBIN 31.9 pg (27.5-34.5); MEAN CORPUSCULAR HGB CONC 34.4 g/dL (33.2-36.2); MEAN CORPUSCULAR VOLUME 92.7 fL (81-97); MONOCYTES # (AUTO) 0.58 x10^3/uL (0.2-0.8); MONOCYTES % (AUTO) 7 % (2-9); NEUTROPHILS # (AUTO) 6.24 x10^3/uL (1.8-6.8); NEUTROPHILS % (AUTO) 71 % (42-75); PLATELET COUNT 185 x10^3/uL (130-400); RED BLOOD COUNT 4.56 x10^6/uL (4.38-5.82); RED CELL DISTRIBUTION WIDTH 12.5 % (9.4-14.8)
[2018-02-18 22:33] LABS: ALANINE AMINOTRANSFERASE 27 U/L (12-78); ALBUMIN 3.3 g/dL (3.4-5.0); ANION GAP 11 mmol/L (5-15); CALCIUM 8.6 mg/dL (8.5-10.1); CHLORIDE 102 mmol/L (98-107); CREATININE 2.22 mg/dL (0.7-1.3)
[2018-02-18 22:36] LABS: ALKALINE PHOSPHATASE 70 U/L (45-117); BILIRUBIN,TOTAL 0.4 mg/dL (0.2-1.0); TOTAL PROTEIN 7.1 g/dL (6.4-8.2)
[2018-02-18 22:47] LABS: MICROSCOPIC NOT IND
[2018-02-18 22:52] LABS: CULTURE INDICATED? NO
[2018-02-19 00:25] VITALS: BP 141/66
== END 2018-02-19 00:40 | disposition home or self-care (01) ==
LOC: ED 23:51
DX: K59.00 Constipation, unspecified (principal); R10.11 Right upper quadrant pain; E11.9 Type 2 diabetes mellitus without complications; Z87.891 Personal history of nicotine dependence
CPT/HCPCS: 36415; 74022; 76700; 80053; 81003; 83690; 85025; 93005; 99284

== ENCOUNTER 2018-04-11 10:30 | Outpatient (CLI) | payer OTHER | END 2018-04-11 23:59 | disposition home or self-care (01) | LOC: WOUND 10:30 | PROVIDERS: ATTEND Podiatrist Foot & Ankle Surgery | DX: E11.621 Type 2 diabetes mellitus with foot ulcer (principal); L97.522 Non-pressure chronic ulcer of other part of left foot with fat layer exposed; E11.42 Type 2 diabetes mellitus with diabetic polyneuropathy; E11.69 Type 2 diabetes mellitus with other specified complication; M86.171 Other acute osteomyelitis, right ankle and foot; L84 Corns and callosities; E78.00 Pure hypercholesterolemia, unspecified; Z87.891 Personal history of nicotine dependence | CPT/HCPCS: 11042; 99215 ==

== ENCOUNTER → 2018-04-18 | Outpatient (CLI) | payer OTHER | END | disposition home or self-care (01) | LOC: WOUND 09:05 | PROVIDERS: ATTEND Podiatrist Foot & Ankle Surgery | DX: E11.621 Type 2 diabetes mellitus with foot ulcer (principal); L97.521 Non-pressure chronic ulcer of other part of left foot limited to breakdown of skin; E11.42 Type 2 diabetes mellitus with diabetic polyneuropathy; E11.69 Type 2 diabetes mellitus with other specified complication; M86.171 Other acute osteomyelitis, right ankle and foot; L84 Corns and callosities; E78.00 Pure hypercholesterolemia, unspecified; Z87.891 Personal history of nicotine dependence | CPT/HCPCS: 97597 ==

== ENCOUNTER 2018-04-25 09:39 | Outpatient (CLI) | payer OTHER | END 2018-04-25 23:59 | disposition home or self-care (01) | LOC: WOUND 09:39 | PROVIDERS: ATTEND Podiatrist Foot & Ankle Surgery | DX: E11.621 Type 2 diabetes mellitus with foot ulcer (principal); L97.521 Non-pressure chronic ulcer of other part of left foot limited to breakdown of skin; E11.69 Type 2 diabetes mellitus with other specified complication; M86.171 Other acute osteomyelitis, right ankle and foot; E11.42 Type 2 diabetes mellitus with diabetic polyneuropathy; L84 Corns and callosities; E78.00 Pure hypercholesterolemia, unspecified; Z87.891 Personal history of nicotine dependence | CPT/HCPCS: 97597 ==

== ENCOUNTER → 2018-05-02 | Outpatient (CLI) | payer OTHER | END | disposition home or self-care (01) | LOC: WOUND 10:08 | PROVIDERS: ATTEND Podiatrist Foot & Ankle Surgery | DX: E11.621 Type 2 diabetes mellitus with foot ulcer (principal); L97.521 Non-pressure chronic ulcer of other part of left foot limited to breakdown of skin; E11.69 Type 2 diabetes mellitus with other specified complication; M86.171 Other acute osteomyelitis, right ankle and foot; E11.42 Type 2 diabetes mellitus with diabetic polyneuropathy; L84 Corns and callosities; E78.00 Pure hypercholesterolemia, unspecified; Z87.891 Personal history of nicotine dependence | CPT/HCPCS: 97597 ==

== ENCOUNTER 2018-05-16 08:03 | Outpatient (CLI) | payer OTHER | END 2018-05-16 23:59 | disposition home or self-care (01) | LOC: WOUND 08:03 | PROVIDERS: ATTEND Podiatrist Foot & Ankle Surgery | DX: E11.621 Type 2 diabetes mellitus with foot ulcer (principal); L97.521 Non-pressure chronic ulcer of other part of left foot limited to breakdown of skin; E11.42 Type 2 diabetes mellitus with diabetic polyneuropathy; E11.69 Type 2 diabetes mellitus with other specified complication; M86.171 Other acute osteomyelitis, right ankle and foot; L84 Corns and callosities; E78.00 Pure hypercholesterolemia, unspecified; Z87.891 Personal history of nicotine dependence | CPT/HCPCS: 97597 ==

== ENCOUNTER → 2018-05-30 | Outpatient (CLI) | payer OTHER | END | disposition home or self-care (01) | LOC: WOUND 08:15 | PROVIDERS: ATTEND Podiatrist Foot & Ankle Surgery | DX: E11.621 Type 2 diabetes mellitus with foot ulcer (principal); L97.528 Non-pressure chronic ulcer of other part of left foot with other specified severity; E11.42 Type 2 diabetes mellitus with diabetic polyneuropathy; E11.69 Type 2 diabetes mellitus with other specified complication; M86.171 Other acute osteomyelitis, right ankle and foot; L84 Corns and callosities; E78.00 Pure hypercholesterolemia, unspecified; Z87.891 Personal history of nicotine dependence | CPT/HCPCS: 99213 ==

== ENCOUNTER 2020-07-16 16:32 | Emergency (ER) | payer OTHER ==
[~2020-07-16] VITALS: Ht 190.5 cm; Wt 125.7 kg
[~2020-07-16 16:32] MED LIST changes: -CLIN300C8 PO; +CLIN300C9 PO; +NAPR-872 PO; -NAPR250T6 PO
[2020-07-16 16:34] VITALS: BP 165/83
--- NOTE | 2020-07-16 16:43 | NUR ---
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 WILL DO RECTAL WHEN PT IS ROOMED.
--- NOTE | 2020-07-16 16:58 | NUR ---
PLANT ETIOLOGIST: RECTAL TEMP 95.4 OBTAINED IN ROOM. BREAK RN UPDATED.
[2020-07-16] MEDS ORDERED: SODIUM CHLORIDE FLUSH 10ML SYR IVF ONE (17:30)
[2020-07-16] MEDS ORDERED: SODIUM CHLORIDE 0.9% 1,000ML IVBOLUS ONE (17:30)
[2020-07-16 17:31] LABS: BASOPHILS % (AUTO) 0 % (0-1); EOSINOPHILS % (AUTO) 1 % (1-7); LYMPHOCYTES % (AUTO) 15 % (22-44); MEAN CORPUSCULAR HEMOGLOBIN 31.3 pg (27.5-34.5); MEAN CORPUSCULAR HGB CONC 34.4 g/dL (33.2-36.2); MEAN PLATELET VOLUME 8.5 fL (7.4-10.4); MONOCYTES % (AUTO) 8 % (2-9); NEUTROPHILS % (AUTO) 75 % (42-75); PLATELET COUNT 166 x10^3/uL (130-400); RED BLOOD COUNT 5.42 x10^6/uL (4.38-5.82); RED CELL DISTRIBUTION WIDTH 13.3 % (9.4-14.8)
[2020-07-16 17:32] LABS: MD NO
[2020-07-16 17:40] LABS: ALANINE AMINOTRANSFERASE 34 U/L (12-78); ALBUMIN 3.6 g/dL (3.4-5.0); ANION GAP 7 mmol/L (5-15); CHLORIDE 103 mmol/L (98-107); CREATININE 1.59 mg/dL (0.7-1.3)
[2020-07-16 17:44] LABS: ALKALINE PHOSPHATASE 50 U/L (45-117); BILIRUBIN,TOTAL 0.4 mg/dL (0.2-1.0); TOTAL PROTEIN 7.7 g/dL (6.4-8.2); TROPONIN I < 0.015 ng/mL (0.000-0.045)
--- NOTE | 2020-07-16 18:35 | NUR ---
pt able to ambulate length of hallway with walking stick which is baseline. pt able to perform task without any difficulty, dizziness, lightheadedness or any other complaints. provider made aware.
== END 2020-07-16 19:27 | disposition home or self-care (01) ==
LOC: ED 19:15
DX: R55 Syncope and collapse (principal); E11.9 Type 2 diabetes mellitus without complications
CPT/HCPCS: 36415; 71045; 80053; 82962; 84484; 85025; 93005; 99285